=== PATIENT | male | born 1945 | race Caucasian/White ===

== ENCOUNTER 2022-07-04 09:19 | Emergency (ER) | payer MEDICARE, OTHER ==
--- NOTE | 2022-07-04 09:46 | ERPHSYRPT ---
- History of Present Illness Time Seen by Provider: 07/04/22 09:45 Source: patient Exam Limitations: no limitations Physician History: This is a 77-year-old who is a type II diabetic and has lived in [facility] since March 2022. He moved here from [place] after his spouse . Patient does not have a local physician. He has progressively worsening symptoms of weakness, urinary frequency, thirst and fatigue. Patient has oxygen that he has not been using lately. At home, his daughter, who is a nurse, found his room air oxygenation saturation level to be 89 to 90% and placed him on 2 L nasal cannula of oxygen. His shortness of breath that is chronic did improve. Patient denies any kind of pain at this time. Patient is a former smoker of cigarettes. Patient was brought to the emergency department because he is even too weak to get up to urinate. I obtained additional history from the patient's daughter. Severity: moderate Associated Symptoms: weakness, No nausea, No vomiting, No abdominal pain, No shortness of breath, No cough, No chest pain Allergies/Adverse Reactions: Sulfa (Sulfonamide Antibiotics) Allergy (Verified 07/04/22 09:55) Home Medications: Atorvastatin Calcium 20 mg PO DAILY 07/04/22 [History] Levothyroxine Sodium 200 mcg PO DAILY 07/04/22 [History] Tamsulosin HCl 0.4 mg [Flomax 0.4 MG] 0.4 mg PO DAILY 07/04/22 [History] Travel Risk - International Travel Have you traveled outside of the country in past 3 weeks: No - Coronavirus Screening Are you exhibiting any of the following symptoms?: No Close contact with a COVID-19 positive Pt in past 14-21 Days: No - Review of Systems Constitutional: Fatigue, Weakness Eyes: No Symptoms Ears, Nose, & Throat: No Symptoms Respiratory: No Symptoms Cardiac: No Symptoms Abdominal/Gastrointestinal: No Symptoms Genitourinary Symptoms: Frequency Musculoskeletal: No Symptoms Skin: No Symptoms Neurological: No Symptoms Psychological: No Symptoms Endocrine: No Symptoms Hematologic/Lymphatic: No Symptoms Immunological/Allergic: No Symptoms All Other Systems: Reviewed and Negative - Past Medical History Pertinent Past Medical History: Yes - Past Surgical History Past Surgical History: Yes - Nursing Vital Signs Nursing Vital Signs: Initial Vital Signs Temperature 98.1 F 07/04/22 09:28 Pulse Rate 101 H 07/04/22 09:28 Respiratory Rate 20 07/04/22 09:28 Blood Pressure 112/63 07/04/22 09:28 O2 Sat by Pulse Oximetry 94 L 07/04/22 09:28 Pain Scale Pain Intensity 0 - Physical Exam General Appearance: no apparent distress, alert, obese Eye Exam: PERRL/EOMI, eyes nml inspection Ears, Nose, Throat Exam: normal ENT inspection, moist mucous membranes Neck Exam: normal inspection, non-tender, supple, full range of motion Respiratory Exam: normal breath sounds, lungs clear, airway intact, No chest tenderness, No respiratory distress Cardiovascular Exam: regular rate/rhythm, normal heart sounds, normal peripheral pulses Gastrointestinal/Abdomen Exam: soft, normal bowel sounds, No tenderness Rectal Exam: not done Back Exam: normal inspection, normal range of motion, No CVA tenderness, No vertebral tenderness Extremity Exam: normal range of motion, pelvis stable, pedal edema (Mild feet and ankle swelling) Neurologic Exam: alert, oriented x 3, cooperative, 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 There is a prolonged FL interval. This twelve-lead EKG was interpreted by me) Ordered Tests: Active Orders 24 hr Category Date Time Status EKG-ER Only STAT Care 07/04/22 10:00 Active IV Insertion STAT Care 07/04/22 10:00 Active Pulse Oximetry (ED) STAT Care 07/04/22 10:00 Active CHEST 1 VIEW (PORTABLE) Stat Exams 07/04/22 10:24 Completed CBC W DIFF Stat Lab 07/04/22 10:42 Completed CMP Stat Lab 07/04/22 10:42 Completed CULTURE,URINE Stat Lab 07/04/22 11:42 Received D-DIMER QUANTITATIVE Stat Lab 07/04/22 10:42 Completed Lactic Acid Stat Lab 07/04/22 10:25 Completed MAGNESIUM Stat Lab 07/04/22 10:42 Completed NT PRO BNP Stat Lab 07/04/22 10:42 Completed POCT GLUCOSE Stat Lab 07/04/22 09:33 Completed POCT GLUCOSE Stat Lab 07/04/22 11:18 Completed TROPONIN Q4H Lab 07/04/22 10:42 Completed TROPONIN Q4H Lab 07/04/22 10:42 Received TROPONIN Q4H Lab 07/04/22 18:00 Ordered UA W/RFX UR CULTURE Stat Lab 07/04/22 11:42 Completed Medication Summary Generic Name Dose Route Start Last Admin Trade Name Freq PRN Reason Stop Dose Admin Sodium Chloride 500 mls @ 500 mls/hr 07/04/22 12:32 07/04/22 12:47 Sodium Chloride 0.9% 500 Ml IV 07/04/22 13:31 500 mls/hr .Q1H ONE Administration Ceftriaxone Sodium/Dextrose 1 g in 50 mls @ 100 mls/hr 07/04/22 12:41 07/04/22 12:48 Rocephin 1 Gm-D5w 50 Ml Bag IV 07/04/22 13:10 100 mls/hr STAT STA 100 mls/hr Administration Discontinued Medications Generic Name Dose Route Start Last Admin Trade Name Sima PRN Reason Stop Dose Admin Sodium Chloride Confirm 07/04/22 12:39 Sodium Chloride 0.9% 500 Ml Administered 07/04/22 12:40 Dose 500 mls @ ud IV .STK-MED ONE Ceftriaxone Sodium/Dextrose Confirm 07/04/22 12:47 Rocephin 1 Gm-D5w 50 Ml Bag Administered 07/04/22 12:48 Dose 1 g in 50 mls @ ud IV .STK-MED ONE Insulin Human Regular 4 unit 07/04/22 12:16 07/04/22 12:24 Insulin Regular, Human 1 Unit IV 07/04/22 12:17 4 unit STAT ONE Administration Insulin Human Regular Confirm 07/04/22 12:24 Insulin Regular, Human 1 Unit Administered 07/04/22 12:25 Dose 4 unit .ROUTE .STK-MED ONE Lab/Rad Data: Laboratory Result Diagrams 07/04/22 10:42 07/04/22 10:42 Laboratory Results 07/04/22 07/04/22 07/04/22 Range/Units 11:42 11:18 10:42 WBC (4.0-10.5) x10^3/uL RBC (4.1-5.6) x10^6/uL Hgb (12.5-18.0) g/dL Hct (42-50) % MCV (78-100) fL MCH (26-32) pg MCHC (32-36) g/dL RDW (11.5-14.0) % Plt Count (150-450) x10^3/uL MPV (7.5-11.0) fL Gran % (36.0-66.0) % Immature Gran % (Auto) (0.00-0.4) % Nucleat RBC Rel Count (0.00-0.1) % Eos # (Auto) (0-0.5) x10^3/uL Immature Gran # (Auto) (0.00-0.03) x10^3u/L Absolute Lymphs (auto) (1.0-4.6) x10^3/uL Absolute Monos (auto) (0.0-1.3) x10^3/uL Absolute Nucleated RBC (0.00-0.01) x10^3u/L Lymphocytes % (24.0-44.0) % Monocytes % (0.0-12.0) % Eosinophils % (0.00-5.0) % Basophils % (0.0-0.4) % Absolute Granulocytes (1.4-6.9) x10^3/uL Basophils # (0-0.4) x10^3/uL D-Dimer (0.0-0.50) mg/L Sodium (137-145) mmol/L Potassium (3.5-5.1) mmol/L Chloride (98-107) mmol/L Carbon Dioxide (22-30) mmol/L Anion Gap (5-15) MEQ/L BUN (9-20) mg/dL Creatinine (0.66-1.25) mg/dL Estimated GFR ML/MIN Glucose (74-106) mg/dL POC Glucometer 302 H (74 to 106) mg/dL Lactic Acid (0.4-2.0) Calcium (8.4-10.2) mg/dL Magnesium (1.6-2.3) mg/dL Total Bilirubin (0.2-1.3) mg/dL AST (17-59) U/L ALT (0-50) U/L Alkaline Phosphatase (38-126) U/L Troponin I (0.000-0.034) ng/mL NT-Pro-B Natriuret Pep (0-1800) pg/mL Serum Total Protein (6.3-8.2) g/dL Albumin (3.5-5.0) g/dL Urine Color Dark Yellow (Yellow) Urine Appearance Turbid A (Clear) Urine pH 5.0 (4.6-8.0) Ur Specific [place] 1.020 (1.005-1.030) Urine Protein 100 A (Negative) Urine Glucose (UA) >=1000 A (Negative) mg/dL Urine Ketones 15 A (Negative) Urine Blood Large A (Negative) Urine Nitrite Negative (Negative) Urine Bilirubin Negative (Negative) Urine Urobilinogen 0.2 (0.2) mg/dL Ur Leukocyte Esterase Large A (Negative) Urine Microscopic RBC 21-50 A (0-5) /HPF Urine Microscopic WBC >100 A (0-5) /HPF Ur Epithelial Cells Rare (None Seen) /HPF Urine Bacteria Many A (None Seen) /HPF WBC Casts 0-2 (NEGATIVE) /LPF Urine Culture Reflexed YES (NO) Influenza Type A Ag NEGATIVE (NEGATIVE) Influenza Type B Ag NEGATIVE (NEGATIVE) RSV (PCR) NEGATIVE (Negative) SARS-CoV-2 (PCR) NEGATIVE (NEGATIVE) Slides for Path Review 07/04/22 07/04/22 07/04/22 Range/Units 10:42 10:42 10:42 WBC (4.0-10.5) x10^3/uL RBC (4.1-5.6) x10^6/uL Hgb (12.5-18.0) g/dL Hct (42-50) % MCV (78-100) fL MCH (26-32) pg MCHC (32-36) g/dL RDW (11.5-14.0) % Plt Count (150-450) x10^3/uL MPV (7.5-11.0) fL Gran % (36.0-66.0) % Immature Gran % (Auto) (0.00-0.4) % Nucleat RBC Rel Count (0.00-0.1) % Eos # (Auto) (0-0.5) x10^3/uL Immature Gran # (Auto) (0.00-0.03) x10^3u/L Absolute Lymphs (auto) (1.0-4.6) x10^3/uL Absolute Monos (auto) (0.0-1.3) x10^3/uL Absolute Nucleated RBC (0.00-0.01) x10^3u/L Lymphocytes % (24.0-44.0) % Monocytes % (0.0-12.0) % Eosinophils % (0.00-5.0) % Basophils % (0.0-0.4) % Absolute Granulocytes (1.4-6.9) x10^3/uL Basophils # (0-0.4) x10^3/uL D-Dimer 0.38 (0.0-0.50) mg/L Sodium 135 L (137-145) mmol/L Potassium 3.3 L (3.5-5.1) mmol/L Chloride 98 (98-107) mmol/L Carbon Dioxide 30 (22-30) mmol/L Anion Gap 9.4 (5-15) MEQ/L BUN 26 H (9-20) mg/dL Creatinine 1.32 H (0.66-1.25) mg/dL Estimated GFR 56.0 ML/MIN Glucose 346 H (74-106) mg/dL POC Glucometer (74 to 106) mg/dL Lactic Acid (0.4-2.0) Calcium 8.6 (8.4-10.2) mg/dL Magnesium 1.7 (1.6-2.3) mg/dL Total Bilirubin 1.30 (0.2-1.3) mg/dL AST 25 (17-59) U/L ALT 24 (0-50) U/L Alkaline Phosphatase 87 (38-126) U/L Troponin I 0.015 (0.000-0.034) ng/mL NT-Pro-B Natriuret Pep 1040 (0-1800) pg/mL Serum Total Protein 6.7 (6.3-8.2) g/dL Albumin 3.6 (3.5-5.0) g/dL Urine Color (Yellow) Urine Appearance (Clear) Urine pH (4.6-8.0) Ur Specific [place] (1.005-1.030) Urine Protein (Negative) Urine Glucose (UA) (Negative) mg/dL Urine Ketones (Negative) Urine Blood (Negative) Urine Nitrite (Negative) Urine Bilirubin (Negative) Urine Urobilinogen (0.2) mg/dL Ur Leukocyte Esterase (Negative) Urine Microscopic RBC (0-5) /HPF Urine Microscopic WBC (0-5) /HPF Ur Epithelial Cells (None Seen) /HPF Urine Bacteria (None Seen) /HPF WBC Casts (NEGATIVE) /LPF Urine Culture Reflexed (NO) Influenza Type A Ag (NEGATIVE) Influenza Type B Ag (NEGATIVE) RSV (PCR) (Negative) SARS-CoV-2 (PCR) (NEGATIVE) Slides for Path Review 07/04/22 07/04/22 07/04/22 Range/Units 10:42 10:25 09:33 WBC 13.1 H (4.0-10.5) x10^3/uL RBC 4.48 (4.1-5.6) x10^6/uL Hgb 14.4 (12.5-18.0) g/dL Hct 43.9 (42-50) % MCV 98.0 (78-100) fL MCH 32.1 H (26-32) pg MCHC 32.8 (32-36) g/dL RDW 13.5 (11.5-14.0) % Plt Count 127 L (150-450) x10^3/uL MPV 11.8 H (7.5-11.0) fL Gran % 79.2 H (36.0-66.0) % Immature Gran % (Auto) 0.5 H (0.00-0.4) % Nucleat RBC Rel Count 0.0 (0.00-0.1) % Eos # (Auto) 0.05 (0-0.5) x10^3/uL Immature Gran # (Auto) 0.06 H (0.00-0.03) x10^3u/L Absolute Lymphs (auto) 1.29 (1.0-4.6) x10^3/uL Absolute Monos (auto) 1.25 (0.0-1.3) x10^3/uL Absolute Nucleated RBC 0.00 (0.00-0.01) x10^3u/L Lymphocytes % 9.9 L (24.0-44.0) % Monocytes % 9.6 (0.0-12.0) % Eosinophils % 0.4 (0.00-5.0) % Basophils % 0.4 (0.0-0.4) % Absolute Granulocytes 10.38 H (1.4-6.9) x10^3/uL Basophils # 0.05 (0-0.4) x10^3/uL D-Dimer (0.0-0.50) mg/L Sodium (137-145) mmol/L Potassium (3.5-5.1) mmol/L Chloride (98-107) mmol/L Carbon Dioxide (22-30) mmol/L Anion Gap (5-15) MEQ/L BUN (9-20) mg/dL Creatinine (0.66-1.25) mg/dL Estimated GFR ML/MIN Glucose (74-106) mg/dL POC Glucometer 341 H (74 to 106) mg/dL Lactic Acid 1.3 (0.4-2.0) Calcium (8.4-10.2) mg/dL Magnesium (1.6-2.3) mg/dL Total Bilirubin (0.2-1.3) mg/dL AST (17-59) U/L ALT (0-50) U/L Alkaline Phosphatase (38-126) U/L Troponin I (0.000-0.034) ng/mL NT-Pro-B Natriuret Pep (0-1800) pg/mL Serum Total Protein (6.3-8.2) g/dL Albumin (3.5-5.0) g/dL Urine Color (Yellow) Urine Appearance (Clear) Urine pH (4.6-8.0) Ur Specific [place] (1.005-1.030) Urine Protein (Negative) Urine Glucose (UA) (Negative) mg/dL Urine Ketones (Negative) Urine Blood (Negative) Urine Nitrite (Negative) Urine Bilirubin (Negative) Urine Urobilinogen (0.2) mg/dL Ur Leukocyte Esterase (Negative) Urine Microscopic RBC (0-5) /HPF Urine Microscopic WBC (0-5) /HPF Ur Epithelial Cells (None Seen) /HPF Urine Bacteria (None Seen) /HPF WBC Casts (NEGATIVE) /LPF Urine Culture Reflexed (NO) Influenza Type A Ag (NEGATIVE) Influenza Type B Ag (NEGATIVE) RSV (PCR) (Negative) SARS-CoV-2 (PCR) (NEGATIVE) Slides for Path Review YES - Progress Progress: improved, re-examined Progress Note: 07/04/22 12:54 Chest x-ray shows no acute cardiopulmonary process. The chest x-ray report read by the radiologist was reviewed by me. 07/04/22 13:09 Medical decision making: This patient's medical issues today are some moderate c omplexity. This is based on obtaining history from the patient, additional history from the patient's daughter who is a nurse, physical examination of the patient, evaluation and review of the patient's lab work including blood and urinalysis as well as review of the patient's radiographic findings. Treatment in the emergency department was based on the above. Patient has the diagnoses of weakness, urinary tract infection and mild dehydration. He also has hyperglycemia. Although the patient does have a small amount of ketones in his urine, his anion gap and CO2 numbers are well within normal limits. Patient has social issues including no local doctor after moving here from [place] in March 2022. We contacted Dr. Olea's office and were able to obtain an appointment for the patient on July 06, 2022 at 9:45 in the morning. Patient is to be there at 9:30 in the morning and he is to bring his identification card and insurance card. I discussed these issues with the patient and with the patient's daughter. Based on the above I also prescribed the patient Levaquin oral antibiotic that he is to take daily. Counseled pt/family regarding: lab results, diagnosis, need for follow-up, rad results - Departure Departure Disposition: Home Clinical Impression: Leukocytosis, Hyperglycemia, UTI (urinary tract infection), Mild dehydration Condition: Stable Critical Care Time: No Referrals: MARYJO JUNE MD [NON-STAFF PHY W/O PRIVILEGES] - Follow up/PCP as directed Additional Instructions: Drink plenty of fluids. Take your medications as prescribed. Follow-up in Dr. Olea's office on July. Be there at 9:30 in the morning to fill out paperwork and your appointment time is approximately 9:45 in the morning. Make sure that you bring your identification card as well as your insurance card. Prescriptions: Levofloxacin [Levaquin 500 MG Tablet] 500 mg PO DAILY #7 tablet
--- NOTE | 2022-07-04 10:33 | XRAY ---
Indication: Short of breath. Comparison: None Portable apical lordotic chest slightly underinflated and clear. Heart not enlarged. Bony thorax intact with osteopenia and mild degenerative changes.
[2022-07-04 10:42] LABS: Absolute Neutrophil Ct (ANC) 10.38 x10^3/uL (1.4-6.9); BASOPHIL % 0.4 % (0.0-0.4); Basophil (Absolute #) 0.05 x10^3/uL (0-0.4); Eosinophil % 0.4 % (0.00-5.0); Eosinophil (Absolute #) 0.05 x10^3/uL (0-0.5); Hematocrit 43.9 % (42-50); Hemoglobin 14.4 g/dL (12.5-18.0); IMMATURE GRAN # 0.06 x10^3u/L (0.00-0.03); IMMATURE GRAN % 0.5 % (0.00-0.4); Lymphocyte (Absolute #) 1.29 x10^3/uL (1.0-4.6); Lymphocytes % 9.9 % (24.0-44.0); Mean Corpuscular Hemoglobin 32.1 pg (26-32); Mean Corpuscular Hgb Concent. 32.8 g/dL (32-36); Mean Platelet Volume 11.8 fL (7.5-11.0); Monocyte (Absolute #) 1.25 x10^3/uL (0.0-1.3); Monocytes % 9.6 % (0.0-12.0); Neutrophil % 79.2 % (36.0-66.0); Platelet Count 127 x10^3/uL (150-450); Red Blood Count 4.48 x10^6/uL (4.1-5.6); Red Cell Distribution Width 13.5 % (11.5-14.0); White Blood Count 13.1 x10^3/uL (4.0-10.5)
[2022-07-04 11:08] LABS: ALBUMIN 3.6 g/dL (3.5-5.0); ANION GAP 9.4 MEQ/L (5-15); BILIRUBIN,TOTAL 1.3 mg/dL (0.2-1.3); Calcium 8.6 mg/dL (8.4-10.2); Creatinine 1 1.32 mg/dL (0.66-1.25); Potassium 3.3 mmol/L (3.5-5.1); TROPONIN 0.015 ng/mL (0.000-0.034); Total Protein 6.7 g/dL (6.3-8.2)
[2022-07-04 11:16] LABS: INFLUENZA A NEGATIVE (NEGATIVE); INFLUENZA B NEGATIVE (NEGATIVE); RESPIRATORY SYNCTIAL VIRUS NEGATIVE (Negative); SARS-CoV-2 Xpert Express NEGATIVE (NEGATIVE)
[2022-07-04 11:27] LABS: Slide Review 1 YES
[2022-07-04] MEDS ORDERED: HUMULIN R IV ONE (12:16)
[2022-07-04] MEDS ORDERED: HUMULIN R ONE (12:24)
[2022-07-04 12:29] LABS: Appearance Turbid (Clear); Bilirubin Negative (Negative); Blood Large (Negative); Glucose, Urine >=1000 mg/dL (Negative); Ketones 15 (Negative); Leukocyte Esterase Large (Negative); Nitrite Negative (Negative); Protein,Urine Dip 100 (Negative); Urobilinogen 0.2 mg/dL (0.2)
[2022-07-04] MEDS ORDERED: Sodium Chloride 0.9% 500 ML 500 ML IV ONE ×2 (12:32→12:39)
[2022-07-04 12:33] LABS: RBC 21-50 /HPF (0-5); WBC >100 /HPF (0-5)
[2022-07-04 12:34] LABS: ADD URINE CULTURE? YES (NO); Bacteria Many /HPF (None Seen); Epithelial Cells Rare /HPF (None Seen); WBC Casts 0-2 /LPF (NEGATIVE)
[2022-07-04] MEDS ORDERED: ROCEPHIN 1 Gm-D5w 50 ml Bag** 1 G/50 ML IVPB IV STA (12:41)
[2022-07-04] MEDS ORDERED: ROCEPHIN 1 Gm-D5w 50 ml Bag** 1 G/50 ML IVPB IV ONE (12:47)
[2022-07-04 13:07] VITALS: BP 110/64; PULSE 86; O2SAT 98
== END 2022-07-04 13:43 | disposition home or self-care (01) ==
LOC: ED 09:19
DX: N39.0 Urinary tract infection, site not specified (principal); E11.65 Type 2 diabetes mellitus with hyperglycemia; D72.829 Elevated white blood cell count, unspecified; E86.0 Dehydration; R53.1 Weakness; R35.0 Frequency of micturition; Z79.899 Other long term (current) drug therapy; Z20.828 Contact with and (suspected) exposure to other viral communicable diseases
CPT/HCPCS: 0241U; 36000; 36415; 71045; 80053; 81001; 82947; 83605; 83735; 83880; 84484; 85025; 85379; 87086; 93005; 94760; 96360; 96365; 96374; 99284; J0696; J1815

== ENCOUNTER 2022-10-25 07:18 | Inpatient (IN) | payer MEDICARE, OTHER ==
[2022-10-25] MEDS ORDERED: Sodium Chloride 0.9% 1000 ML 1,000 ML IV STA ×2 (07:31→08:59)
[2022-10-25] MEDS ORDERED: Sodium Chloride 0.9% 1000 ML 1,000 ML ONE ×2 (07:37→09:01)
--- NOTE | 2022-10-25 08:00 | ERPHSYRPT ---
- History of Present Illness Source: patient, family, EMS Exam Limitations: other (Poor Historian) Patient Subjective Stated Complaint: C/O weakness. States he needed help getting off of the commode this am. He indicates he has been ill for the past few days with increasing weakness. He also states that he thinks he has a UTI because he has felt this way in the past when he "has a bad one." Triage Nursing Assessment: Patient brought into ER by ambulance. He is awake and alert at this time. SOB noted with labored respirations; patient wears 02 @ 3L per N/C at home and arrived wearing 6L per N/C by ambulance. Patient placed back on normal 3L per N/C. He is diaphoretic and pale. Patient uncomfortable in bed; shifting around. He states he is having neck pain; denies fall or injury. Slight edema noted to BLE. Physician History: 77 yo WM w lethargy/fever/dysuria/nausea/mild diarrhea x 1-2 days. Pt denies cough/coryza/chest pain/abdominal pain/hematuria/melena/hematochezia. He also complains of myalgias. There is no focal weakness, but daughter states that he had trouble betting off the toilet this morning and had some slurring of speech. PMH includes DM/HTN/ID/Hyperlipidemia/2ppd smoker until 15 yrs ago. Pt is 3L O2 dependent at home. Timing/Duration: other (1-2 days) Modifying Factors: Improves With: nothing Associated Symptoms: nausea, weakness Allergies/Adverse Reactions: Sulfa (Sulfonamide Antibiotics) Allergy (Verified 10/25/22 07:46) Home Medications: Atorvastatin Calcium 20 mg PO QHS 07/04/22 [History] Tamsulosin HCl 0.4 mg [Flomax 0.4 MG] 0.4 mg PO DAILY 07/04/22 [History] Diphenhydramine HCl [Benadryl Allergy] 25 mg PO Q6HPRN PRN 10/25/22 [History] Glimepiride 2 mg [Amaryl 2 MG] 2 mg PO DAILY 10/25/22 [History] Hyoscyamine Sulfate 0.125 mg [Anaspaz 0.125 mg] 0.125 mg PO QID PRN 10/25/22 [History] Levothyroxine Sodium 250 mcg PO DAILY 10/25/22 [History] Lisinopril 5 mg [Zestril 5 MG] 5 mg PO DAILY 10/25/22 [History] Hx Tetanus, Diphtheria Vaccination/Date Given: Yes Hx Influenza Vaccination/Date Given: Yes (unsure if got this year) Hx Pneumococcal Vaccination/Date Given: Yes Immunizations Up to Date: Yes Travel Risk - International Travel Have you traveled outside of the country in past 3 weeks: No - Coronavirus Screening Are you exhibiting any of the following symptoms?: Yes Symptoms: Shortness of Breath Close contact with a COVID-19 positive Pt in past 14-21 Days: No - Vaccine Status Have you recieved a Covid-19 vaccination: Yes 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 - Vaccination Dates Date of 2cond Vaccination (if applicable): 09/15/2020 - Review of Systems Constitutional: Fever, Chills, Fatigue, Lethargy, Malaise Eyes: No Symptoms Ears, Nose, & Throat: No Symptoms Respiratory: No Symptoms Cardiac: No Symptoms Abdominal/Gastrointestinal: No Symptoms, Nausea, Diarrhea Genitourinary Symptoms: No Symptoms, Dysuria Musculoskeletal: No Symptoms Skin: No Symptoms Neurological: No Symptoms Psychological: No Symptoms Endocrine: No Symptoms Hematologic/Lymphatic: No Symptoms Immunological/Allergic: No Symptoms - Past Medical History Pertinent Past Medical History: Yes Cardiac History: High Cholesterol, Hypertension Respiratory History: COPD Endocrine Medical History: Diabetes Type II, Hypothyroidism, Other Male Reproductive Disorders: Other Other Medical History: hoshimotos, bph - Past Surgical History Past Surgical History: Yes Gastrointestinal: Appendectomy Male Surgical History: Prostate Surgery - Social History Smoking Status: Former smoker Exposure to second hand smoke: No Drug Use: none Patient Lives Alone: Yes Significant Family History: no pertinent family hx - Nursing Vital Signs Nursing Vital Signs: Initial Vital Signs Temperature 97.4 F 10/25/22 07:24 Pulse Rate 106 H 10/25/22 07:24 Respiratory Rate 36 H 10/25/22 07:24 Blood Pressure 74/51 10/25/22 07:24 O2 Sat by Pulse Oximetry 94 L 10/25/22 07:24 Pain Scale Pain Intensity 8 Tachy/Hypotensive - Physical Exam General Appearance: mild distress Eye Exam: PERRL/EOMI, eyes nml inspection Ears, Nose, Throat Exam: normal ENT inspection, TMs normal, pharynx normal Neck Exam: normal inspection, non-tender, supple, full range of motion, No meningismus, No mass, No Brudzinski, No Kernig's, No carotid bruit Respiratory Exam: crackles/rales (Rales B bases) Cardiovascular Exam: tachycardia, No murmur Gastrointestinal/Abdomen Exam: soft, normal bowel sounds, No tenderness Back Exam: normal inspection, normal range of motion, No CVA tenderness Extremity Exam: pedal edema (Trace B) Neurologic Exam: alert (Alert, but ill appearing), oriented x 3, cooperative, 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 tested, sensation nml, No motor deficits, No sensory deficit Skin Exam: pale SpO2 Interpretation: normal SpO2: 94 O2 Delivery: Room Air - Course Nursing assessment & vital signs reviewed: Yes EKG Interpreted by Me: RATE (Sinus tach/Rate 105/Old inferior ID/Normal QT- QTc/No acute ST segment changes/Flat Twaves) - CT Exams Head CT Interpretation: Discussed w/radiologist (Nothing acute) Cervical Spine CT Interpretation: Discussed w/radiologist (CT C-spine DJD) Chest CT Interpretation: Discussed w/radiologist (Atelectasis/NAJERA/Tiny gallstones) Ordered Tests: Active Orders 24 hr Category Date Time Status BLADDER [US] Stat Exams 10/25/22 10:23 Completed CERVICAL SPINE WO CONTRAST [CT] Stat Exams 10/25/22 07:44 Completed CHEST WITHOUT CONTRAST [CT] Stat Exams 10/25/22 07:44 Completed HEAD WITHOUT CONTRAST [CT] Stat Exams 10/25/22 07:44 Completed ARTERIAL BLOOD GASES Urgent Lab 10/25/22 07:55 Completed BLOOD CULTURE Stat Lab 10/25/22 08:11 Received CBC W DIFF Stat Lab 10/25/22 08:11 Completed CMP AM.LAB Lab 10/26/22 04:00 Ordered CMP Stat Lab 10/25/22 08:11 Completed CULTURE,URINE Stat Lab 10/25/22 09:08 Received Lactic Acid Stat Lab 10/25/22 07:55 Completed Lactic Acid Stat Lab 10/25/22 10:06 Completed MAGNESIUM Stat Lab 10/25/22 08:11 Completed Manual Differential NC Stat Lab 10/25/22 08:11 Completed NT PRO BNPII Stat Lab 10/25/22 08:11 Completed POCT GLUCOSE Stat Lab 10/25/22 07:45 Completed PROTIME WITH INR Stat Lab 10/25/22 07:31 Completed PTT Stat Lab 10/25/22 07:31 Completed TROPONIN Q4H Lab 10/25/22 08:11 Completed TROPONIN Q4H Lab 10/25/22 12:00 Completed TROPONIN Q4H Lab 10/25/22 15:45 Ordered TSH [TSH, 3RD Generation] Stat Lab 10/25/22 08:07 Ordered UA W/RFX UR CULTURE Stat Lab 10/25/22 09:08 Completed Transfer Order Routine Transfer 10/25/22 Completed Medication Summary Generic Name Dose Route Start Last Admin Trade Name Freq PRN Reason Stop Dose Admin Heparin Sodium (Beef Lung) 5,000 unit 10/25/22 14:00 Heparin 5000 Units/0.5 Ml 5,000 Unit/0.5 Ml Syr SQ 11/24/22 13:59 Q8HT ALESSANDRA Sodium Chloride 1,000 mls @ 100 mls/hr 10/25/22 10:30 Sodium Chloride 0.9% 1000 Ml IV 11/24/22 10:29 .Q10H ALESSANDRA Piperacillin Sod/Tazobactam 100 mls @ 200 mls/hr 10/25/22 14:00 Sod 4.5 gm/ Sodium Chloride IV 11/24/22 13:59 Q8HT ALESSANDRA Insulin Human Lispro 0 unit 10/25/22 10:25 Insulin Lispro 1 Unit SQ 11/24/22 10:24 UD PRN HYPERGLYCEMIA Ondansetron HCl 4 mg 10/25/22 10:25 Ondansetron Hcl 4 Mg/2 Ml Vial IV 11/24/22 10:24 Q6H PRN PRN NAUSEA/VOMITING Pantoprazole Sodium 40 mg 10/25/22 12:00 Pantoprazole 40 Mg Vial IV 11/24/22 11:59 Q24H10 ALESSANDRA Discontinued Medications Generic Name Dose Route Start Last Admin Trade Name Freq PRN Reason Stop Dose Admin Sodium Chloride 1,000 mls @ 999 mls/hr 10/25/22 07:31 10/25/22 09:13 Sodium Chloride 0.9% 1000 Ml IV 10/25/22 08:31 Infused .Q1H1M STA Infusion Sodium Chloride Confirm 10/25/22 07:37 Sodium Chloride 0.9% 1000 Ml Administered 10/25/22 07:38 Dose 1,000 mls @ ud .ROUTE .STK-MED ONE Piperacillin Sod/Tazobactam 100 mls @ 200 mls/hr 10/25/22 14:00 10/25/22 08:31 Sod 4.5 gm/ Sodium Chloride IV 11/24/22 13:59 200 mls/hr Q8HT ALESSANDRA Administration Sodium Chloride Confirm 10/25/22 08:02 Sodium Chloride 100ml Mini-Bag Plus Administered 10/25/22 08:03 Dose 100 mls @ ud IV .STK-MED ONE Sodium Chloride 1,000 mls @ 999 mls/hr 10/25/22 08:59 10/25/22 10:18 Sodium Chloride 0.9% 1000 Ml IV 10/25/22 09:59 Infused .Q1H1M STA Infusion Sodium Chloride Confirm 10/25/22 09:01 Sodium Chloride 0.9% 1000 Ml Administered 10/25/22 09:02 Dose 1,000 mls @ ud .ROUTE .STK-MED ONE Piperacillin Sod/Tazobactam Sod Confirm 10/25/22 08:02 Piperacillin/Tazobactam Sodium 4.5 Gm Vial Administered 10/25/22 08:03 Dose 4.5 gm IV .STK-MED ONE Lab/Rad Data: Laboratory Result Diagrams 10/25/22 08:11 10/25/22 08:11 Laboratory Results 10/25/22 10/25/22 10/25/22 Range/Units 10:06 09:08 08:11 WBC (4.0-10.5) x10^3/uL RBC (4.1-5.6) x10^6/uL Hgb (12.5-18.0) g/dL Hct (42-50) % MCV (78-100) fL MCH (26-32) pg MCHC (32-36) g/dL RDW (11.5-14.0) % Plt Count (150-450) x10^3/uL MPV (7.5-11.0) fL Gran % (36.0-66.0) % Immature Gran % (Auto) (0.00-0.4) % Nucleat RBC Rel Count (0.00-0.1) % Eos # (Auto) (0-0.5) x10^3/uL Immature Gran # (Auto) (0.00-0.03) x10^3u/L Absolute Lymphs (auto) (1.0-4.6) x10^3/uL Absolute Monos (auto) (0.0-1.3) x10^3/uL Absolute Nucleated RBC (0.00-0.01) x10^3u/L Lymphocytes % (24.0-44.0) % Monocytes % (0.0-12.0) % Eosinophils % (0.00-5.0) % Basophils % (0.0-0.4) % Absolute Granulocytes (1.4-6.9) x10^3/uL Segmented Neutrophils (36.-66.) % Lymphocytes (Manual) (24-44) % Monocytes (Manual) (0.0-12.0) % Basophils # (0-0.4) x10^3/uL Platelet Estimate (NORMAL) RBC Morphology PT (9.4-12.5) SECONDS INR (0.8-3.0) APTT (25.1-36.5) SECONDS Puncture Site pCO2 (35-45) mmHg pO2 (75-100) mmHg Base Excess (-2.0-2.0) O2 Saturation (94-100) g/dF ABG pH (7.35-7.45) ABG HCO3 (22-28) ABG O2 Sat (Measured) (95-100) % Yamil Test A-a Gradient a/A Ratio Hemoglobin Carboxyhemoglobin (0.0-6.9) % THgb Methemoglobin (1.4-1.5) % Potassium (3.5-5.1) Temperature C POC O2 Flow Rate % Sodium (137-145) mmol/L Chloride (98-107) mmol/L Carbon Dioxide (22-30) mmol/L Anion Gap (5-15) MEQ/L BUN (9-20) mg/dL Creatinine (0.66-1.25) mg/dL Estimated GFR ML/MIN Glucose (74-106) mg/dL POC Glucometer (74 to 106) mg/dL Lactic Acid 1.9 (0.4-2.0) Calcium (8.4-10.2) mg/dL Magnesium (1.6-2.3) mg/dL Total Bilirubin (0.2-1.3) mg/dL AST (17-59) U/L ALT (0-50) U/L Alkaline Phosphatase (38-126) U/L Troponin I (0.000-0.034) ng/mL NT-Pro-B Natriuret Pep (<300) pg/mL Serum Total Protein (6.3-8.2) g/dL Albumin (3.5-5.0) g/dL Urine Color Red A (Yellow) Urine Appearance Turbid A (Clear) Urine pH (4.6-8.0) Ur Specific Caney 1.015 (1.005-1.030) Urine Protein 100 A (Negative) Urine Glucose (UA) Negative (Negative) mg/dL Urine Ketones Negative (Negative) Urine Blood Moderate A (Negative) Urine Nitrite Positive A (Negative) Urine Bilirubin Moderate A (Negative) Urine Urobilinogen 0.2 (0.2) mg/dL Ur Leukocyte Esterase Large A (Negative) U Hyaline Cast (Auto) 11-20 (0-2) /LPF Urine Microscopic RBC >100 A (0-5) /HPF Urine Microscopic WBC >100 A (0-5) /HPF Ur Epithelial Cells Many A (None Seen) /HPF Urine Bacteria Many A (None Seen) /HPF Urine Culture Reflexed YES (NO) Influenza Type A Ag NEGATIVE (NEGATIVE) Influenza Type B Ag NEGATIVE (NEGATIVE) RSV (PCR) NEGATIVE (NEGATIVE) SARS-CoV-2 (PCR) NEGATIVE (NEGATIVE) 10/25/22 10/25/22 10/25/22 Range/Units 08:11 08:11 08:11 WBC 26.5 H* (4.0-10.5) x10^3/uL RBC 4.27 (4.1-5.6) x10^6/uL Hgb 13.7 (12.5-18.0) g/dL Hct 42.6 (42-50) % MCV 99.8 (78-100) fL MCH 32.1 H (26-32) pg MCHC 32.2 (32-36) g/dL RDW 12.9 (11.5-14.0) % Plt Count 146 L (150-450) x10^3/uL MPV 11.8 H (7.5-11.0) fL Gran % 88.6 H (36.0-66.0) % Immature Gran % (Auto) 1.8 H (0.00-0.4) % Nucleat RBC Rel Count 0.0 (0.00-0.1) % Eos # (Auto) 0.01 (0-0.5) x10^3/uL Immature Gran # (Auto) 0.47 H (0.00-0.03) x10^3u/L Absolute Lymphs (auto) 0.80 L (1.0-4.6) x10^3/uL Absolute Monos (auto) 1.71 H (0.0-1.3) x10^3/uL Absolute Nucleated RBC 0.00 (0.00-0.01) x10^3u/L Lymphocytes % 3.0 L (24.0-44.0) % Monocytes % 6.4 (0.0-12.0) % Eosinophils % 0.0 (0.00-5.0) % Basophils % 0.2 (0.0-0.4) % Absolute Granulocytes 23.48 H (1.4-6.9) x10^3/uL Segmented Neutrophils 88 H (36.-66.) % Lymphocytes (Manual) 6 L (24-44) % Monocytes (Manual) 6 (0.0-12.0) % Basophils # 0.06 (0-0.4) x10^3/uL Platelet Estimate DECREASED (NORMAL) RBC Morphology NORMAL PT (9.4-12.5) SECONDS INR (0.8-3.0) APTT (25.1-36.5) SECONDS Puncture Site pCO2 (35-45) mmHg pO2 (75-100) mmHg Base Excess (-2.0-2.0) O2 Saturation (94-100) g/dF ABG pH (7.35-7.45) ABG HCO3 (22-28) ABG O2 Sat (Measured) (95-100) % Yamil Test A-a Gradient a/A Ratio Hemoglobin Carboxyhemoglobin (0.0-6.9) % THgb Methemoglobin (1.4-1.5) % Potassium 4.1 (3.5-5.1) Temperature C POC O2 Flow Rate % Sodium 137 (137-145) mmol/L Chloride 104 (98-107) mmol/L Carbon Dioxide 16 L* (22-30) mmol/L Anion Gap 20.8 H (5-15) MEQ/L BUN 44 H (9-20) mg/dL Creatinine 2.89 H (0.66-1.25) mg/dL Estimated GFR 22.7 ML/MIN Glucose 341 H (74-106) mg/dL POC Glucometer (74 to 106) mg/dL Lactic Acid (0.4-2.0) Calcium 8.3 L (8.4-10.2) mg/dL Magnesium 2.5 H (1.6-2.3) mg/dL Total Bilirubin 1.20 (0.2-1.3) mg/dL AST 103 H (17-59) U/L ALT 36 (0-50) U/L Alkaline Phosphatase 86 (38-126) U/L Troponin I 0.118 H* (0.000-0.034) ng/mL NT-Pro-B Natriuret Pep 6870 (<300) pg/mL Serum Total Protein 6.9 (6.3-8.2) g/dL Albumin 3.7 (3.5-5.0) g/dL Urine Color (Yellow) Urine Appearance (Clear) Urine pH (4.6-8.0) Ur Specific Caney (1.005-1.030) Urine Protein (Negative) Urine Glucose (UA) (Negative) mg/dL Urine Ketones (Negative) Urine Blood (Negative) Urine Nitrite (Negative) Urine Bilirubin (Negative) Urine Urobilinogen (0.2) mg/dL Ur Leukocyte Esterase (Negative) U Hyaline Cast (Auto) (0-2) /LPF Urine Microscopic RBC (0-5) /HPF Urine Microscopic WBC (0-5) /HPF Ur Epithelial Cells (None Seen) /HPF Urine Bacteria (None Seen) /HPF Urine Culture Reflexed (NO) Influenza Type A Ag (NEGATIVE) Influenza Type B Ag (NEGATIVE) RSV (PCR) (NEGATIVE) SARS-CoV-2 (PCR) (NEGATIVE) 10/25/22 10/25/22 10/25/22 Range/Units 07:55 07:55 07:45 WBC (4.0-10.5) x10^3/uL RBC (4.1-5.6) x10^6/uL Hgb (12.5-18.0) g/dL Hct (42-50) % MCV (78-100) fL MCH (26-32) pg MCHC (32-36) g/dL RDW (11.5-14.0) % Plt Count (150-450) x10^3/uL MPV (7.5-11.0) fL Gran % (36.0-66.0) % Immature Gran % (Auto) (0.00-0.4) % Nucleat RBC Rel Count (0.00-0.1) % Eos # (Auto) (0-0.5) x10^3/uL Immature Gran # (Auto) (0.00-0.03) x10^3u/L Absolute Lymphs (auto) (1.0-4.6) x10^3/uL Absolute Monos (auto) (0.0-1.3) x10^3/uL Absolute Nucleated RBC (0.00-0.01) x10^3u/L Lymphocytes % (24.0-44.0) % Monocytes % (0.0-12.0) % Eosinophils % (0.00-5.0) % Basophils % (0.0-0.4) % Absolute Granulocytes (1.4-6.9) x10^3/uL Segmented Neutrophils (36.-66.) % Lymphocytes (Manual) (24-44) % Monocytes (Manual) (0.0-12.0) % Basophils # (0-0.4) x10^3/uL Platelet Estimate (NORMAL) RBC Morphology PT (9.4-12.5) SECONDS INR (0.8-3.0) APTT (25.1-36.5) SECONDS Puncture Site LEFT RADIAL pCO2 28 L (35-45) mmHg pO2 87 (75-100) mmHg Base Excess -6.0 L (-2.0-2.0) O2 Saturation 93.5 L (94-100) g/dF ABG pH 7.40 (7.35-7.45) ABG HCO3 17.3 L (22-28) ABG O2 Sat (Measured) 98.5 (95-100) % Yamil Test YES A-a Gradient 106 a/A Ratio 0.45 Hemoglobin 14.5 Carboxyhemoglobin 4.0 (0.0-6.9) % THgb Methemoglobin 1.2 L (1.4-1.5) % Potassium 4.1 (3.5-5.1) Temperature 37.0 C POC O2 Flow Rate 32 % Sodium (137-145) mmol/L Chloride (98-107) mmol/L Carbon Dioxide (22-30) mmol/L Anion Gap (5-15) MEQ/L BUN (9-20) mg/dL Creatinine (0.66-1.25) mg/dL Estimated GFR ML/MIN Glucose (74-106) mg/dL POC Glucometer 303 H (74 to 106) mg/dL Lactic Acid 4.7 H (0.4-2.0) Calcium (8.4-10.2) mg/dL Magnesium (1.6-2.3) mg/dL Total Bilirubin (0.2-1.3) mg/dL AST (17-59) U/L ALT (0-50) U/L Alkaline Phosphatase (38-126) U/L Troponin I (0.000-0.034) ng/mL NT-Pro-B Natriuret Pep (<300) pg/mL Serum Total Protein (6.3-8.2) g/dL Albumin (3.5-5.0) g/dL Urine Color (Yellow) Urine Appearance (Clear) Urine pH (4.6-8.0) Ur Specific [place] (1.005-1.030) Urine Protein (Negative) Urine Glucose (UA) (Negative) mg/dL Urine Ketones (Negative) Urine Blood (Negative) Urine Nitrite (Negative) Urine Bilirubin (Negative) Urine Urobilinogen (0.2) mg/dL Ur Leukocyte Esterase (Negative) U Hyaline Cast (Auto) (0-2) /LPF Urine Microscopic RBC (0-5) /HPF Urine Microscopic WBC (0-5) /HPF Ur Epithelial Cells (None Seen) /HPF Urine Bacteria (None Seen) /HPF Urine Culture Reflexed (NO) Influenza Type A Ag (NEGATIVE) Influenza Type B Ag (NEGATIVE) RSV (PCR) (NEGATIVE) SARS-CoV-2 (PCR) (NEGATIVE) 10/25/22 Range/Units 07:31 WBC (4.0-10.5) x10^3/uL RBC (4.1-5.6) x10^6/uL Hgb (12.5-18.0) g/dL Hct (42-50) % MCV (78-100) fL MCH (26-32) pg MCHC (32-36) g/dL RDW (11.5-14.0) % Plt Count (150-450) x10^3/uL MPV (7.5-11.0) fL Gran % (36.0-66.0) % Immature Gran % (Auto) (0.00-0.4) % Nucleat RBC Rel Count (0.00-0.1) % Eos # (Auto) (0-0.5) x10^3/uL Immature Gran # (Auto) (0.00-0.03) x10^3u/L Absolute Lymphs (auto) (1.0-4.6) x10^3/uL Absolute Monos (auto) (0.0-1.3) x10^3/uL Absolute Nucleated RBC (0.00-0.01) x10^3u/L Lymphocytes % (24.0-44.0) % Monocytes % (0.0-12.0) % Eosinophils % (0.00-5.0) % Basophils % (0.0-0.4) % Absolute Granulocytes (1.4-6.9) x10^3/uL Segmented Neutrophils (36.-66.) % Lymphocytes (Manual) (24-44) % Monocytes (Manual) (0.0-12.0) % Basophils # (0-0.4) x10^3/uL Platelet Estimate (NORMAL) RBC Morphology PT 12.8 H (9.4-12.5) SECONDS INR 1.19 (0.8-3.0) APTT 29.1 (25.1-36.5) SECONDS Puncture Site pCO2 (35-45) mmHg pO2 (75-100) mmHg Base Excess (-2.0-2.0) O2 Saturation (94-100) g/dF ABG pH (7.35-7.45) ABG HCO3 (22-28) ABG O2 Sat (Measured) (95-100) % Yamil Test A-a Gradient a/A Ratio Hemoglobin Carboxyhemoglobin (0.0-6.9) % THgb Methemoglobin (1.4-1.5) % Potassium (3.5-5.1) Temperature C POC O2 Flow Rate % Sodium (137-145) mmol/L Chloride (98-107) mmol/L Carbon Dioxide (22-30) mmol/L Anion Gap (5-15) MEQ/L BUN (9-20) mg/dL Creatinine (0.66-1.25) mg/dL Estimated GFR ML/MIN Glucose (74-106) mg/dL POC Glucometer (74 to 106) mg/dL Lactic Acid (0.4-2.0) Calcium (8.4-10.2) mg/dL Magnesium (1.6-2.3) mg/dL Total Bilirubin (0.2-1.3) mg/dL AST (17-59) U/L ALT (0-50) U/L Alkaline Phosphatase (38-126) U/L Troponin I (0.000-0.034) ng/mL NT-Pro-B Natriuret Pep (<300) pg/mL Serum Total Protein (6.3-8.2) g/dL Albumin (3.5-5.0) g/dL Urine Color (Yellow) Urine Appearance (Clear) Urine pH (4.6-8.0) Ur Specific [place] (1.005-1.030) Urine Protein (Negative) Urine Glucose (UA) (Negative) mg/dL Urine Ketones (Negative) Urine Blood (Negative) Urine Nitrite (Negative) Urine Bilirubin (Negative) Urine Urobilinogen (0.2) mg/dL Ur Leukocyte Esterase (Negative) U Hyaline Cast (Auto) (0-2) /LPF Urine Microscopic RBC (0-5) /HPF Urine Microscopic WBC (0-5) /HPF Ur Epithelial Cells (None Seen) /HPF Urine Bacteria (None Seen) /HPF Urine Culture Reflexed (NO) Influenza Type A Ag (NEGATIVE) Influenza Type B Ag (NEGATIVE) RSV (PCR) (NEGATIVE) SARS-CoV-2 (PCR) (NEGATIVE) - Progress Progress: improved Progress Note: 10/25/22 10:30 Nursing note and vital signs reviewed No food or housing insecurities noted All lab results reviewed and shared w pt All CT results reviewed and shared w pt 1L NS bolus x2 Blood cultures x2 Zosyn 4.5gms IV Heaton cath per nursing for urine OP/Catheter had to be re-positioned/re-placed per nursing Pt arrived hypotensive which resolved w fluids ICU admit per Dr. Olea Orders entered 10/25/22 13:04 Discussed with : Yari Will see patient in: hospital (full admit) Counseled pt/family regarding: lab results, diagnosis, rad results Medical Desision Making - Independent Historian Additional History obtained from: Child - Discussion of managment Care discussed with:: PCP Reviewed:: Test results Agreed on:: Treatment plan, decision to admit Will see patient: in hospital - Diagnostic Testing Diagnostic test were ordered, analyzed, and reviewed by me: Yes Radiological Interpretation: Reviewed by me, Discussed w/ radiologist - Risk of complications The pt has a high risk of morbidity or mortality based on: Drug therapy requiring intensive monitoring for toxicity - Departure Departure Disposition: In-patient Admission Clinical Impression: Sepsis associated hypotension, UTI (urinary tract infection) Condition: Stable Critical Care Time: Yes Critical Care Time(excluding separately billable procedures): Critical 75-104 mins
[2022-10-25] MEDS ORDERED: PIPERACILLIN/TAZOBACTAM IV ONE (08:02)
[2022-10-25] MEDS ORDERED: Sodium Chloride 100ML MINI-BAG PLUS 100 ML IV ONE (08:02)
[2022-10-25 08:03] LABS: A-aADO2 106; ABG HEMOGLOBIN 14.5; ABG POTASSIUM 4.1 (3.5-5.1); ABG SITE LEFT RADIAL; ALLEN TEST OK? YES; ARTERIAL BLD GAS O2 SATURATION 98.5 % (95-100); ARTERIAL BLOOD GAS FIO2 32 %; ARTERIAL BLOOD GAS PCO2 28 mmHg (35-45); ARTERIAL BLOOD GAS PO2 87 mmHg (75-100); HCO3- 17.3 (22-28); HGB O2 SAT 93.5 g/dF (94-100); Methhemoglobin 1.2 % (1.4-1.5); paO2 pAO1 0.45
[2022-10-25 08:17] LABS: Absolute Neutrophil Ct (ANC) 23.48 x10^3/uL (1.4-6.9); BASOPHIL % 0.2 % (0.0-0.4); Basophil (Absolute #) 0.06 x10^3/uL (0-0.4); Eosinophil (Absolute #) 0.01 x10^3/uL (0-0.5); Hematocrit 42.6 % (42-50); Hemoglobin 13.7 g/dL (12.5-18.0); IMMATURE GRAN # 0.47 x10^3u/L (0.00-0.03); IMMATURE GRAN % 1.8 % (0.00-0.4); Mean Cell Volume 99.8 fL (78-100); Mean Corpuscular Hemoglobin 32.1 pg (26-32); Mean Corpuscular Hgb Concent. 32.2 g/dL (32-36); Mean Platelet Volume 11.8 fL (7.5-11.0); Monocyte (Absolute #) 1.71 x10^3/uL (0.0-1.3); Monocytes % 6.4 % (0.0-12.0); Neutrophil % 88.6 % (36.0-66.0); Platelet Count 146 x10^3/uL (150-450); Red Blood Count 4.27 x10^6/uL (4.1-5.6); Red Cell Distribution Width 12.9 % (11.5-14.0)
[2022-10-25 08:22] LABS: White Blood Count 26.5 x10^3/uL (4.0-10.5)
[2022-10-25 08:26] LABS: INR 1.19 (0.8-3.0); PROTIME 12.8 SECONDS (9.4-12.5); PTT 29.1 SECONDS (25.1-36.5)
[2022-10-25 08:34] LABS: ALBUMIN 3.7 g/dL (3.5-5.0); ANION GAP 20.8 MEQ/L (5-15); BILIRUBIN,TOTAL 1.2 mg/dL (0.2-1.3); Calcium 8.3 mg/dL (8.4-10.2); Creatinine 1 2.89 mg/dL (0.66-1.25); EST GLOMERULAR FILTRATION RATE 22.7 ML/MIN; MAGNESIUM 2.5 mg/dL (1.6-2.3); Potassium 4.1 mmol/L (3.5-5.1); Total Protein 6.9 g/dL (6.3-8.2)
[2022-10-25 08:49] LABS: INFLUENZA A NEGATIVE (NEGATIVE); INFLUENZA B NEGATIVE (NEGATIVE); RESPIRATORY SYNCTIAL VIRUS NEGATIVE (NEGATIVE); SARS-CoV-2 Xpert Express NEGATIVE (NEGATIVE)
--- NOTE | 2022-10-25 09:01 | XRAY ---
Indication: Lethargy. Multiple contiguous axial images obtained through the head without contrast. Comparison: None Age-appropriate global atrophy. No acute intracranial hemorrhage, abnormal extra-axial fluid collection, or mass effect. Fourth ventricle is midline without hydrocephalus. Bony calvarium intact. Visualized paranasal sinuses and mastoid air cells are clear. Impression: Normal CT head without contrast exam for patient's age.
--- NOTE | 2022-10-25 09:03 | XRAY ---
Indication: Lethargy. Multiple contiguous axial images obtained through the cervical spine. Sagittal and coronal reformatted images obtained. Comparison: None Axial images negative for acute fracture, suspicious bony lesions, or spinal canal stenosis. Minimal C5-C7 degenerative endplate spurring. Additional mild atlantoaxial degenerative changes. Facets are symmetric. Sagittal and coronal reformatted images demonstrates normal alignment with vertebral body heights/disc spaces maintained. No acute compression fracture, subluxation, or jumped facet. Normal appearing craniocervical junction. Visualized noncontrasted soft tissues demonstrates minimal left carotid calcifications. CT chest reported separately. Impression: Minimal multilevel degenerative changes. Remaining CT cervical spine is negative.
--- NOTE | 2022-10-25 09:05 | XRAY ---
Indication: Lethargy. Multiple contiguous axial images obtained through the chest without contrast. Comparison: None Lungs demonstrates mild bilateral dependent atelectasis and small right upper lobe bleb. No suspicious pulmonary mass/nodule, infiltrate, effusion, or pneumothorax. Heart borderline enlarged with mild scattered coronary calcifications. Aorta minimally arteriosclerotic without aneurysm. No pathologic mediastinal lymphadenopathy. Small hiatal hernia. Bony thorax intact with mild degenerative changes throughout the spine and left shoulder. Limited upper abdomen demonstrates fatty liver, tiny gallstones, and incompletely visualized bilateral hydronephrosis. Impression: 1. Incompletely visualized bilateral hydronephrosis. 2. Chronic findings including borderline cardiomegaly, arteriosclerotic disease, chronic bony findings, fatty liver, gallstones, and hiatal hernia. 3. Remaining CT chest without contrast exam is negative.
[2022-10-25 09:41] LABS: TROPONIN 0.118 ng/mL (0.000-0.034)
[2022-10-25 09:43] LABS: Appearance Turbid (Clear); Bacteria Many /HPF (None Seen); Bilirubin Moderate (Negative); Blood Moderate (Negative); Epithelial Cells Many /HPF (None Seen); Glucose, Urine Negative (Negative); Ketones Negative (Negative); Leukocyte Esterase Large (Negative); Nitrite Positive (Negative); Protein,Urine Dip 100 (Negative); RBC >100 /HPF (0-5); Specific Gravity 1.015 (1.005-1.030); Urobilinogen 0.2 mg/dL (0.2); WBC >100 /HPF (0-5)
[2022-10-25 09:44] LABS: ADD URINE CULTURE? YES (NO)
[2022-10-25 10:04] LABS: Lymphocytes 6 % (24-44); Monocyte 6 % (0.0-12.0); Neutrophils 88 % (36.-66.); Platelet Estimate DECREASED (NORMAL); Total Cells Counted 100
[2022-10-25] MEDS ORDERED: Zofran 4 MG/2 ML VIAL IV PRN (10:25)
[2022-10-25] MEDS ORDERED: HUMALOG SQ PRN (10:25)
--- NOTE | 2022-10-25 11:40 | XRAY ---
Indication: Weakness. Heaton catheter placement with no return. Ultrasound urinary bladder demonstrates normal distention without focal bladder mass or wall thickening. Heaton balloon catheter not seen.
[2022-10-25] MEDS: PROTONIX 40 MG IV IV SCH (14:00)
[2022-10-25] MEDS: Sodium Chloride 0.9% 1000 ML 1,000 ML IV SCH ×2 (14:00→23:42)
[2022-10-25] MEDS ORDERED: PIPERACILLIN/TAZOBACTAM 4.5 GM in Sodium Chloride 100ML MINI-BAG PLUS 100 ML IV SCH (14:00)
[2022-10-25] MEDS ORDERED: TYLENOL 325 MG PO PRN (15:03)
[2022-10-25] MEDS: PIPERACILLIN/TAZOBACTAM 4.5 GM in Sodium Chloride 100ML MINI-BAG PLUS 100 ML IV SCH ×2 (15:23→22:24)
[2022-10-25] MEDS: NICODERM CQ 14 MG TOP SCH (15:23)
[2022-10-25] MEDS: HEPARIN 5000 UNITS/0.5 ML (HIGH RISK MED) SQ SCH ×2 (15:23→22:14)
[2022-10-25] MEDS: NORCO 5/325 MG PO PRN ×2 (15:24→23:41)
[2022-10-25] MEDS ORDERED: [UNRECOGNIZED DRUG - REMARK] PO PRN (15:49)
[2022-10-25] MEDS ORDERED: BENADRYL 25 MG CAPSULE PO PRN (15:52)
[2022-10-25] MEDS ORDERED: ANASPAZ 0.125 MG PO PRN (16:00)
[2022-10-25] MEDS: SYNTHROID 125 MCG PO SCH (16:56)
[2022-10-25] MEDS: Flomax 0.4 MG PO SCH (16:57)
[2022-10-25] MEDS: Zestril 5 MG PO SCH (17:01)
[2022-10-25] MEDS: Amaryl 2 MG PO SCH (17:01)
[2022-10-25] MEDS ORDERED: SUBLIMAZE 100 MCG/2 ML IV PRN (17:50)
[2022-10-25] MEDS ORDERED: NON-FORMULARY ITEM (Atorvastatin Calcium [Atorvastatin Calcium] 20 MG Tablet) PO SCH (22:00)
[2022-10-25] MEDS: ZOCOR 20MG PO SCH (22:13)
[2022-10-26] MEDS: HEPARIN 5000 UNITS/0.5 ML (HIGH RISK MED) SQ SCH ×3 (05:08→23:16)
[2022-10-26] MEDS: PIPERACILLIN/TAZOBACTAM 4.5 GM in Sodium Chloride 100ML MINI-BAG PLUS 100 ML IV SCH (05:08)
[2022-10-26 06:07] LABS: ALBUMIN 2.9 g/dL (3.5-5.0); ANION GAP 16.5 MEQ/L (5-15); BILIRUBIN,TOTAL 1.2 mg/dL (0.2-1.3); Calcium 6.9 mg/dL (8.4-10.2); Creatinine 1 3.27 mg/dL (0.66-1.25); EST GLOMERULAR FILTRATION RATE 19.7 ML/MIN; Potassium 4.1 mmol/L (3.5-5.1)
[2022-10-26] MEDS ORDERED: SUBLIMAZE 100 MCG/2 ML IV PRN (06:46)
[2022-10-26 08:42] LABS: Hematocrit 38.2 % (42-50); Hemoglobin 12.2 g/dL (12.5-18.0); Mean Cell Volume 101.1 fL (78-100); Mean Corpuscular Hemoglobin 32.3 pg (26-32); Mean Corpuscular Hgb Concent. 31.9 g/dL (32-36); Mean Platelet Volume 12.3 fL (7.5-11.0); Platelet Count 104 x10^3/uL (150-450); Red Blood Count 3.78 x10^6/uL (4.1-5.6); Red Cell Distribution Width 13.3 % (11.5-14.0); White Blood Count 13.8 x10^3/uL (4.0-10.5)
[2022-10-26] MEDS: Amaryl 2 MG PO SCH (08:50)
[2022-10-26] MEDS: PROTONIX 40 MG IV IV SCH (10:41)
[2022-10-26] MEDS: Zestril 5 MG PO SCH (10:41)
[2022-10-26] MEDS: Flomax 0.4 MG PO SCH (10:41)
[2022-10-26] MEDS: SYNTHROID 125 MCG PO SCH (10:41)
[2022-10-26] MEDS: NICODERM CQ 14 MG TOP SCH (10:42)
[2022-10-26] MEDS: Sodium Chloride 0.9% 1000 ML 1,000 ML IV SCH (11:06)
--- NOTE | 2022-10-26 16:32 | XRAY ---
Indication: Lower extremity weakness. Paralysis. Sagittal and axial MRI lumbar spine performed without contrast using T1 and T2-weighted sequences. Comparison: None No prior lumbar exams for counting purposes. 5 lumbar segments will be assumed. Sagittal MRI images demonstrate normal lumbar alignment. L3-S1 degenerative disc desiccation signal. There is L4-S1 disc space narrowing with mild opposing endplate degenerative discogenic signal changes, Modic type II. Incidental 8 mm L3 vertebral hemangioma. No acute fracture, suspicious bony lesions, or abnormal bone marrow signal. Conus medullaris terminates thoracolumbar junction. Incidental near empty urinary bladder with Heaton balloon catheter in situ. Sagittal images through T12-L3 disc levels are unremarkable. Axial images at L3-L4 level demonstrates minimal annular disc bulge minimally effacing thecal sac and producing minimal bilateral foraminal narrowing. No focal disc herniation or canal stenosis. Mild bilateral degenerative facet and ligamentum flavum hypertrophy. At L4-L5 level, there is bilateral foraminal narrowing due to broad-based disc bulge. No focal disc herniation or canal stenosis. Mild bilateral degenerative facet and ligamentum flavum hypertrophy. At L5-S1 level, there is bilateral foraminal stenosis without nerve root impingement due to broad-based disc osteophyte complex. No focal disc herniation or canal stenosis. Mild bilateral degenerative facet hypertrophy. Impression: 1. L3-S1 degenerative disc disease detailed level by level. 2. Negative disc herniation or spinal canal stenosis. 3. Incidental small L3 vertebral hemangioma.
[2022-10-26] MEDS ORDERED: PIPERACILLIN/TAZOBACTAM 4.5 GM in Sodium Chloride 100ML MINI-BAG PLUS 100 ML IV SCH (18:00)
[2022-10-26] MEDS ORDERED: HUMALOG SQ PRN (22:00)
[2022-10-26] MEDS ORDERED: SODIUM BICARBONATE 50 MEQ/50 ML ABBOJECT IV ONE ×2 (23:08→23:10)
[2022-10-26] MEDS ORDERED: Dextrose 5%/Water IV Soln. 1000 ML 1,000 ML IV ONE (23:09)
[2022-10-26] MEDS: ZOCOR 20MG PO SCH (23:17)
[2022-10-26] MEDS ORDERED: Dextrose 5%/Water IV Soln. 1000 ML 1,000 ML IV SCH (23:30)
[2022-10-26] MEDS ORDERED: Sodium Bicarbonate 50 MEQ/50 ML VIAL IV ONE (23:30)
[2022-10-27 00:12] VITALS: BP 98/55; PULSE 105; O2SAT 94
--- NOTE | 2022-10-27 08:34 | XRAY ---
Indication: Confusion. Aphagia. Stroke symptoms. Multiple contiguous axial images obtained through the head without contrast. Comparison: One day earlier. Again age-appropriate global atrophy. No acute intracranial hemorrhage, abnormal extra-axial fluid collection, or mass effect. Fourth ventricle is midline without hydrocephalus. Ritter-white matter differentiation preserved. Bony calvarium intact. Visualized paranasal sinuses and mastoid air cells are clear. Impression: No new or acute intracranial abnormalities. MRI brain may yield further information if there remains further clinical concern.
--- NOTE | 2022-10-31 11:09 | CONS ---
CONSULT DATE: 10/26/2022 REASON FOR CONSULT: Evaluation of increased renal dysfunction/decreased urine output. HISTORY: Otis Carmichael is a very pleasant 77-year-old gentleman who has underlying history of chronic kidney disease. Baseline creatinine around 1.3 to 1.5 mg%. The patient was admitted. The patient is on oxygen, has chronic respiratory failure, poor historian. The patient presented with complaints of weakness. He states he has been ill for the last few days. He had difficulty in voiding. Heaton catheter was placed. Insertion was traumatic subsequently hematuria. Urine output has been poor. The urine was turbid. He was started on Zosyn. Blood pressure has been low. He was on lisinopril. No vomiting or diarrhea. He used 3 liters of oxygen. The patient's creatinine was 2.87 and subsequently went to 3.5. Urine output remained poor. Renal consultation was called. REVIEW OF SYSTEMS: Basically no vomiting or diarrhea. Poor p.o. intake. Oxygenation at baseline. He is having leg weakness. At the time of my evaluation, tele-neurology was also there. The patient denies any use of nonsteroidal. Lethargy was present. He does complain of on questioning had diarrhea for two days. He was on tamsulosin. No fall trauma. Generalized weakness was present. Weakness has deteriorated in the hospital. All systems were reviewed in detail but was limited by underlying condition of the patient. Pertinent mentioned here and in history of present illness. PAST MEDICAL HISTORY: Diabetes mellitus type II. Chronic kidney disease stage III. Benign prostatic hypertrophy. Dyslipidemia. Hypothyroidism. Hypertension. Chronic respiratory failure on 3 liters of oxygen at home. PAST SURGICAL HISTORY: Appendectomy. Prostate surgery. MEDICATIONS: Home medications were reviewed this included diphenhydramine, glimepiride, hyoscyamine, levothyroxine, lisinopril, atorvastatin, tamsulosin. All medications were reviewed, details of doses were noted. ALLERGIES: SULFA. SOCIAL HISTORY: Former smoker. No alcohol abuse. No illicit drug abuse. FAMILY HISTORY: No history of renal problems in the family. PHYSICAL EXAMINATION: Vital signs were reviewed. Afebrile. HEENT: Normocephalic, atraumatic, pale conjunctivae. NECK: Supple. CHEST: Decreased basilar breath sounds. CVS: S1, S2 normal. ABDOMEN: Soft, nontender. EXTREMITIES: Trace to +1 edema bilaterally. SKIN: Scaly skin. Skin turgor is normal. NEUROLOGIC: Arousable, alert, awake, oriented x2. All reflexes were seen diminished to absent. MUSCULOSKELETAL: No acute joint swelling is noted. LAB DATA AND TESTS: Labs were reviewed. Creatinine was around 3.5. Potassium was normal. White count was high. Radiological tests were reviewed. ASSESSMENT: 1) Acute kidney injury on chronic kidney disease possibly stage III. Etiology of acute chronic kidney injury appears to be secondary to urine retention/urinary tract infection with cytokine release/cytokine related injury, may have gone into acute tubular necrosis (ATN). Diarrhea prior to admission could have been contributory with volume depletion. Other contributory factors possibly include use of lisinopril fluctuating blood pressure. We will discontinue lisinopril, continue IV fluids. Urine studies will be done. May need renal replacement therapy. Discussed with Dr. Olea if the urine output does not improve, transfer to [facility]. 2) Metabolic acidosis. Change to bicarb drip. 3) Diabetes mellitus type II. Discontinue glimepiride. Change to increase in coverage. 4) Hypertension. Relatively hypotensive. Discontinue lisinopril. 5) Generalized weakness could be because of underlying urinary tract infection/early sepsis could be because of GB (Guillain-Leitchfield) syndrome. Reflexes are diminished. Discussed with tele-neurology. 6) Chronic respiratory failure. Continue oxygen. No need for diuretics. All questions answered. Discussed with Dr. Olea.
--- NOTE | 2022-12-05 22:23 | PCM.SSS ---
History of Present Illness - Chief Complaint Chief Complaint: UROSEPSIS Date: 10/27/22 History of Present Illness: is a 77 year old male w lethargy/fever/dysuria/nausea/mild diarrhea x 1-2 days. Pt denies cough/coryza/chest pain/abdominal pain/hematuria/kathy na/hematochezia. He also complains of myalgias. There is no focal weakness, but daughter states that he had trouble betting off the toilet this morning and had some slurring of speech. PMH includes DM/HTN/ME/Hyperlipidemia/2ppd smoker until 15 yrs ago. Pt is 3L O2 dependent at home. - Review of Systems Constitutional: Lethargy, Weakness Eyes: No Symptoms Ears, Nose, & Throat: No Symptoms Respiratory: Short Of Breath, No Cough Cardiac: No Chest Pain, No Edema, No Syncope Abdominal/Gastrointestinal: Nausea, Vomiting, Diarrhea Genitourinary Symptoms: Dysuria, Frequency Musculoskeletal: No Back Pain, No Neck Pain Skin: No Rash Neurological: No Dizziness, No Focal Weakness, No Sensory Changes Psychological: No Symptoms Endocrine: No Symptoms Hematologic/Lymphatic: No Symptoms Immunological/Allergic: No Symptoms Medications & Allergies Home Medications: Home Medication List Atorvastatin Calcium 20 mg PO QHS 07/04/22 [History Confirmed 10/25/22] Tamsulosin HCl 0.4 mg [Flomax 0.4 MG] 0.4 mg PO DAILY 07/04/22 [History Confirmed 10/25/22] Diphenhydramine HCl [Benadryl Allergy] 25 mg PO Q6HPRN PRN 10/25/22 [History Confirmed 10/25/22] Glimepiride 2 mg [Amaryl 2 MG] 2 mg PO DAILY 10/25/22 [History Confirmed 10/25/22] Hyoscyamine Sulfate 0.125 mg [Anaspaz 0.125 mg] 0.125 mg PO QID PRN 10/25/22 [History Confirmed 10/25/22] Levothyroxine Sodium 250 mcg PO DAILY 10/25/22 [History Confirmed 10/25/22] Lisinopril 5 mg [Zestril 5 MG] 5 mg PO DAILY 10/25/22 [History Confirmed 10/25/22] Allergies/Adverse Reactions: Allergies Allergy/AdvReac Type Severity Reaction Status Date / Time Sulfa (Sulfonamide Allergy Verified 10/25/22 07:46 Antibiotics) - Past Medical History Past Medical History: Yes Neurological History: No Pertinent History ENT History: No Pertinent History Cardiac History: High Cholesterol, Hypertension Respiratory History: COPD Endocrine Medical History: Diabetes Type II, Hypothyroidism, Other Musculoskelatal History: No Pertinent History GI Medical History: No Pertinent History History: No Pertinent History Pyscho-Social History: No Pertinent History Male Reproductive Disorders: Other Comment: hoshimotos, bph - Past Surgical History Past Surgical History: Yes Neuro Surgical History: No Pertinent History Cardiac History: No Pertinent History Respiratory Surgery: No Pertinent History GI Surgical History: Appendectomy Genitourinary Surgical Hx: No Pertinent History Musculskeletal Surgical Hx: No Pertinent History Male Surgical History: Prostate Surgery - Social History Smoking Status: Former smoker Exposure to second hand smoke: No Alcohol: None Drug Use: none Significant Family History: no pertinent family hx - Physical Exam General Appearance: no apparent distress, alert Neurologic Exam: alert, oriented x 3, cooperative, normal mood/affect, nml cere bellar function, nml station & gait, sensation nml, No motor deficits Eye Exam: PERRL/EOMI, eyes nml inspection Ears, Nose, Throat Exam: normal ENT inspection, TMs normal, pharynx normal, moist mucous membranes Neck Exam: normal inspection, non-tender, supple, full range of motion Respiratory Exam: normal breath sounds, lungs clear, No respiratory distress Cardiovascular Exam: regular rate/rhythm, normal heart sounds, normal peripheral pulses Gastrointestinal/Abdomen Exam: soft, normal bowel sounds, No tenderness, No mass Back Exam: normal inspection, normal range of motion, No CVA tenderness, No vertebral tenderness Extremity Exam: normal inspection, normal range of motion, pelvis stable Skin Exam: normal color, warm, dry, No rash Lymphatic Exam: No adenopathy Results - Labs Lab/Micro Results: Microbiology 10/25/22 08:11 Blood Culture - Final Blood NO GROWTH 10/25/22 08:11 Blood Culture - Final Blood NO GROWTH 10/25/22 09:08 Urine Culture - Final Clean Catch Midstream Escherichia Coli Assessment/Plan (1) Leukocytosis Status: Acute Code(s): D72.829 - ELEVATED WHITE BLOOD CELL COUNT, UNSPECIFIED (2) Mild dehydration Status: Acute Code(s): E86.0 - DEHYDRATION (3) Sepsis associated hypotension Status: Acute Code(s): A41.9 - SEPSIS, UNSPECIFIED ORGANISM; I95.9 - HYPOTENSION, UNSPECIFIED (4) UTI (urinary tract infection) Status: Acute Code(s): N39.0 - URINARY TRACT INFECTION, SITE NOT SPECIFIED Hospital Summary - Hospital Course Hospital Course: Pt. admitted and started iv antibiotics and gentle hydration, symptoms improved as he responded to antibiotics and was back to baseline after 2 days and ready for discharge to home. - Vitals & Intake/Output Vital Signs: Vital Signs Temperature 98.0 F 10/27/22 00:00 Pulse Rate 105 H 10/27/22 00:00 Respiratory Rate 30 H 10/27/22 00:00 Blood Pressure 98/55 10/27/22 00:00 O2 Sat by Pulse Oximetry 94 L 10/27/22 00:00 - Lab Result Diagrams: 10/26/22 05:35 10/26/22 05:35 Micro Results-Entire Visit: Microbiology 10/25/22 08:11 Blood Culture - Final Blood NO GROWTH 10/25/22 08:11 Blood Culture - Final Blood NO GROWTH 10/25/22 09:08 Urine Culture - Final Clean Catch Midstream Escherichia Coli - Procedures and Test Procedures and Tests throughout Hospitalization: Therapy Orders & Screens 10/25/22 14:37 Oxygen NASAL CANNULA 3 lpm Comment: Diagnosis: UROSEPSIS 10/26/22 08:33 PT Eval & Treat ( Order) ONCE Reason for Eval:: weakness; unable to move legs in bed Diagnosis: UROSEPSIS 10/26/22 08:35 OT Eval and Treat (MD Order) ROUTINE Comment: Physician Instructions: Reason For Exam: BUE weakness - Discharge Discharge Date: 10/27/22 Disposition: Home, Self-Care Condition: Stable Prescriptions: No Action Tamsulosin HCl 0.4 mg [Flomax 0.4 MG] 0.4 mg PO DAILY Atorvastatin Calcium 20 mg PO QHS Lisinopril 5 mg [Zestril 5 MG] 5 mg PO DAILY Glimepiride 2 mg [Amaryl 2 MG] 2 mg PO DAILY Levothyroxine Sodium 250 mcg PO DAILY Hyoscyamine Sulfate 0.125 mg [Anaspaz 0.125 mg] 0.125 mg PO QID PRN Diphenhydramine HCl [Benadryl Allergy] 25 mg PO Q6HPRN PRN PRN Reason: allergy Forms: Ambulance Transport Record, Transfer Record [facility]
== END 2022-10-27 00:40 | disposition home or self-care (01) | DRG 814 ==
LOC: ED 07:18 → UNDOADMIN 11:39 → MED SURG 11:39
PROVIDERS: ADMIT Family Medicine; ATTEND Family Medicine
DX: D72.829 Elevated white blood cell count, unspecified (principal); A41.9 Sepsis, unspecified organism; E87.20 Acidosis, unspecified; G93.49 Other encephalopathy; J96.10 Chronic respiratory failure, unspecified whether with hypoxia or hypercapnia; N39.0 Urinary tract infection, site not specified; E86.0 Dehydration; R41.9 Unspecified symptoms and signs involving cognitive functions and awareness; E11.22 Type 2 diabetes mellitus with diabetic chronic kidney disease; I12.9 Hypertensive chronic kidney disease with stage 1 through stage 4 chronic kidney disease, or unspecified chronic kidney disease; N18.30 Chronic kidney disease, stage 3 unspecified; R33.9 Retention of urine, unspecified; Z79.899 Other long term (current) drug therapy; Z20.828 Contact with and (suspected) exposure to other viral communicable diseases; Z99.81 Dependence on supplemental oxygen; Z87.891 Personal history of nicotine dependence
CPT/HCPCS: 0241U; 36000; 36415; 36600; 51702; 70450; 71250; 72125; 72148; 76705; 80053; 81001; 82375; 82803; 82947; 83036; 83605; 83735; 83880; 84443; 84484; 85025; 85027; 85610; 85730; 87040; 87077; 87086; 87186; 94760; 96360; 96361; 96365; 99284; 99291; 99292; J1644; J2543; J3010; A9270-GY